=== PATIENT | female | born 1990 | race Caucasian/White ===

== ENCOUNTER → 2021-01-31 16:06 | Outpatient (CLI) | payer OTHER, SELFPAY ==
[2021-01-31 16:24] LABS: Specimen Label NATERA KIT
[2021-01-31 17:06] LABS: Add Manual Diff / Slide Review NO; Basophils Absolute Auto 100 /uL (0-100); Basophils Percent Auto 0.6 % (0-2); Eosinophils Absolute Auto 200 /uL (0-450); Eosinophils Percent Auto 1.8 % (2-4); Hematocrit 36.4 % (36-46); Hemoglobin 12.2 g/dL (12.0-16.0); Lymphocytes Absolute Auto 2300 /uL (1100-4500); Lymphocytes Percent Auto 21.5 % (25-40); Mean Corpuscular HGB Conc 33.5 % (30-36); Mean Corpuscular Hemoglobin 29.5 PG (26-34); Mean Corpuscular Volume 88.1 fL (80-100); Monocytes Absolute Auto 700 /uL (0-900); Monocytes Percent Auto 6.6 % (3-14); Neutrophils Absolute Auto 7400 /uL (1500-7000); Neutrophils Percent Auto 69.5 % (50-75); Platelet Count 268 X10^3/uL (150-400); Red Blood Cell Count 4.13 X10^6/uL (4.0-5.2); Red Cell Distribution Width 12.6 % (11.6-14.8); White Blood Cell Count 10.7 X10^3/uL (4.5-11.0)
[2021-01-31 17:55] LABS: Hepatitis B Surface Antigen NEGATIVE s/c (NEGATIVE); Rubella Antibody IgG 7.7 IU/mL (>15)
[2021-01-31 18:08] LABS: HIV 1 & 2 Ab/Ag 4th Gen Combo NEGATIVE (NEGATIVE); Hep C Virus Ab w/Reflex Quant NEGATIVE s/c (NEGATIVE)
[2021-01-31 18:28] LABS: Appearance Urine UA CLEAR; Bilirubin Urine UA NEGATIVE (NEGATIVE); Color Urine UA YELLOW; Glucose Urine UA NEGATIVE (Negative); Ketones Urine UA NEGATIVE (NEGATIVE); Leukocyte Esterase Urine UA NEGATIVE (NEGATIVE); Nitrite Urine UA NEGATIVE (Negative); Occult Blood Urine UA NEGATIVE (Negative); Protein Urine UA NEGATIVE (Negative); Specific Gravity Urine UA 1.015 (1.000-1.035); Urobilinogen Urine UA 0.2 E.U./dL (0.2)
[2021-01-31 18:32] LABS: Urine N gonorrhoeae NOT DETECTED
[2021-01-31 18:38] LABS: Urine Chlamydia NOT DETECTED
[2021-02-01 06:54] LABS: RPR Screen Non Reactive (Non Reactive); Varicella IgG Antibody 684 index (Immune >165)
== END ==
PROVIDERS: PCP Specialist; Referring Provider Obstetrics & Gynecology; Visit Provider Obstetrics & Gynecology
DX: Z34.81 Encounter for supervision of other normal pregnancy, first trimester (principal); Z3A.09 9 weeks gestation of pregnancy
CPT/HCPCS: 36415; 80055; 81003; 86787; 86803; 86850; 86900; 86901; 87086; 87389; 87491; 87591

== ENCOUNTER → 2021-04-07 15:58 | Outpatient (CLI) | payer OTHER, SELFPAY ==
--- NOTE | 2021-04-07 15:58 | DI.US.S_ITS ---
PROCEDURE: US OB >= 14 WEEKS FETUS INDICATIONS: ANATOMY SCAN OUTSIDE/PRIOR DATING DATA: Last menstrual period (LMP): 11/24/2020. LMP-based estimated date of delivery (PATY): 08/31/2021. First dating scan (date and location): 01/31/2021. Estimated date of delivery (PATY) from first dating scan: 09/02/2021. The calculations are made using the ultrasound PATY of 09/02/2021. TECHNIQUE: Real-time scanning was performed of the fetus, with image documentation and biometric measurements. Endovaginal scanning: Not performed. COMPARISON: [facility], US, OB <= 14 WEEKS FETUS, 01/31/2021, 15:48. FINDINGS: General: A single living intrauterine gestation is present. Presentation: Vertex. Placenta: Placental position is posterior, without previa. Amniotic fluid index: 12.4 cm, normal range is 5-24 cm. Single deepest vertical pocket is 3.6 cm. heart rate: 144 beats per minute. Maternal cervical canal: 3.9 cm long. Normal lower limit is 2.5 cm. biometrics: Biparietal diameter: 4.3 cm, 19 weeks 0 days Head circumference: 16 cm, 18 weeks 6 days Abdominal circumference: 13.4 cm, 18 weeks 6 days Femur length: 3.2 cm, 20 weeks 0 days Clinically estimated gestational age: 18 weeks 6 days Composite gestational age from present scan: 19 weeks 1 day Estimated weight and percentile: 286 g, 73rd percentile Anatomic survey: Neuro: Ventricles are non-dilated at less than 10 mm. Cisterna magna is normal at 3-11 mm. Cerebellum is normal in size and morphology. Nuchal skin fold: Normal at less than 6 mm between 14-21 weeks gestational age. Face: Profile is unremarkable. Nose is not well seen. Lips are less well seen. Spine: No evidence for spina bifida. Heart: 4-chambered heart is present, with normal ventricular outflow tracts. Diaphragm: Diaphragm is intact. Stomach: Left-sided stomach is present. Kidneys: Kidneys are not well seen. Cord: 3-vessel cord. Cord insertion is approximately 2 cm from the placental edge. Bladder: Normal in size. Extremities: All 4 extremities identified. IMPRESSION: 1. [place]ins living intrauterine at 19 weeks 1 day based on today's ultrasound. This is concordant with the prior ultrasound. There is expected interval growth. Fetus is in the 73rd percentile for weight. 2. Normal amniotic fluid. Question marginal cord insertion. 3. nose and lips and kidneys are not well seen. Otherwise normal anatomic survey. Recommend follow-up OB ultrasound. We strive to produce accurate, complete, and clear reports of imaging services. To assist us in improving patient care, this report was composed using standard report templates and voice recognition software. Therefore, it may contain abnormal punctuation, insertions and/or omissions. Occasional wrong-word or sound-alike substitutions may occur. Though we review the report and make efforts to correct it, we do recommend that the report be read carefully in proper context to recognize any text inaccuracies. Dictated by: Johnny Engel M.D. on 04/08/2021 at 8:02 Approved by: Johnny Engel M.D. on 04/08/2021 at 8:10
== END ==
PROVIDERS: PCP Specialist; Referring Provider Obstetrics & Gynecology; Visit Provider Obstetrics & Gynecology
DX: Z34.82 Encounter for supervision of other normal pregnancy, second trimester (principal); Z3A.19 19 weeks gestation of pregnancy
CPT/HCPCS: 76811

== ENCOUNTER → 2021-08-03 18:57 | Outpatient (CLI) | payer OTHER, SELFPAY ==
[2021-08-05 07:49] LABS: Strep Grp B PCR NEG for Grp B Strep
== END ==
PROVIDERS: PCP Specialist; Visit Provider Obstetrics & Gynecology
DX: Z36.85 Encounter for antenatal screening for Streptococcus B (principal); Z3A.36 36 weeks gestation of pregnancy
CPT/HCPCS: 87653

== ENCOUNTER 2021-09-04 17:53 | Inpatient (IN) | payer OTHER, SELFPAY ==
[2021-09-04 18:49] LABS: Add Manual Diff / Slide Review NO; Basophils Absolute Auto 100 /uL (0-100); Basophils Percent Auto 0.6 % (0-2); Eosinophils Absolute Auto 200 /uL (0-450); Eosinophils Percent Auto 1.6 % (2-4); Hematocrit 32.4 % (36-46); Hemoglobin 11.2 g/dL (12.0-16.0); Lymphocytes Absolute Auto 2000 /uL (1100-4500); Lymphocytes Percent Auto 20.6 % (25-40); Mean Corpuscular HGB Conc 34.6 % (30-36); Mean Corpuscular Hemoglobin 30.1 PG (26-34); Mean Corpuscular Volume 87.2 fL (80-100); Monocytes Absolute Auto 800 /uL (0-900); Monocytes Percent Auto 8.8 % (3-14); Neutrophils Absolute Auto 6600 /uL (1500-7000); Neutrophils Percent Auto 68.4 % (50-75); Platelet Count 154 X10^3/uL (150-400); Red Blood Cell Count 3.72 X10^6/uL (4.0-5.2); White Blood Cell Count 9.6 X10^3/uL (4.5-11.0)
[2021-09-04 19:03] LABS: COVID19 -Nasal RAPID Negative (Negative)
[2021-09-04 19:08] VITALS: BP 119/74
[2021-09-04] MEDS: DINOPROSTONE VAG (CERVIDIL) 10 MG VAG (21:03)
[2021-09-05] MEDS: LACTATED RINGERS 1,000 ML 100 ML IV ×3 (10:05→17:59)
[2021-09-05] MEDS: OXYTOCIN PREMIX 30 UNIT/500 ML PLAST..BAG IV (10:06)
--- NOTE | 2021-09-05 12:32 | P.HPOB_ITS ---
OB HPI Date/Time Date of admission: 09/04/21 Date Patient Seen: 09/05/21 Time Patient Seen: 07:25 History of Present Condition Chief complaint: Induction PATY Calculator Estimated Delivery Date Method Current WG Current Estimate 08/31/21 LMP (Uncertain) 40w 5d Other Estimates 09/02/21 Ultrasound #1 40w 3d Estimated Gestational Age (weeks): 40+5 : 2 Para: 0 care: good care, initiated at week # (9), number of visits (11) and pounds weight gain (56) Dating criteria OB: LMP confirmed by 1st trimester US Ultrasounds: normal 1st trimester US and normal mid trimester US Obstetrical complications: none Medical complications OB: none Indications Indication for induction OB: post dates Preadmission Labs Last OB Lab Results: Blood Type AB Negative 09/04/21 18:20 09/04/21 Antibody Screen Negative 09/04/21 18:20 09/04/21 Hematocrit 32.4 % (36-46) L 09/04/21 18:20 09/04/21 Hemoglobin 11.2 g/dL (12.0-16.0) L 09/04/21 18:20 09/04/21 Hepatitis B Surface Antigen Negative s/c (NEGATIVE) 01/31/21 16:22 01/31/21 Hepatitis C Antibody Negative s/c (NEGATIVE) 01/31/21 16:22 01/31/21 Rubella Antibody 7.7 IU/mL (>15) L 01/31/21 16:22 01/31/21 Varicella-Zoster IgG Antibody 684 index (Immune >165) 01/31/21 16:22 1 Group B Streptococcus (PCR) Neg for grp b strep 08/03/21 18:57 08/03/21 Glucose Tolerance Testing: Fasting (92), 1 hr (164), 2 hr (126) and 3 hr (108) -: Chlamydia screen: negative, Gonorrhea screen: negative and Urine: negative Genetic Screens: Cell-free DNA: Normal (nl male) and Alpha-fetoprotein: Normal External Labs -: Urine: negative Prior (ies) Past Pregnancies Del. Date GA/Weeks Labor Lgth Wt Sex Route Outcome Anesthesia Place Delv Breastfeed Preg Comp Name 02/04/11 5-6 elective [place] elective Delivery Date: 10/15/11 Last Updated by: Macarena Love, RWinsome *Pill taken no negative fall out. Evaluation Evaluation Baseline heart rate: 130 Variability: Moderate (11-25) monitor accelerations: Present Monitor Decelerations: Absent Contraction Frequency (minutes): 5 Uterine Contraction Intensity: Moderate Status: Category l Dilation (cm): 2 Effacement (%): 95 station: -1 Position of cervix: mid Consistency: soft [facility] Medical History (Updated 01/31/21 @ 09:48 by Shannon Kathleen) Abnormal Pap smear of cervix (~2015) Ankle pain (~2006) Chicken pox Eczema of both upper extremities (~1996) HPV in female (~2015) Hx of migraines (~2011) Migraines (~2017) Therapeutic in first trimester (~2010) Wears glasses Surgical History (Updated 01/25/21 @ 15:46 by Macarena Love, BORIS) H/O colposcopy with cervical biopsy (~2015) Family History (Updated 01/31/21 @ 09:50 by Shannon Kathleen) Father Accident Mother Crohn's disease Hypertension Arthritis Grandfather Obesity Diabetes mellitus Alcoholic Grandmother History of ETOH abuse Alcoholism in recovery Grandfather No problems noted. Grandmother COPD (chronic obstructive pulmonary disease) Lung disease Brother Healthy adult Family/Other Diabetes mellitus Family/Other CVA (cerebral vascular accident) Mental health problem Social History marital status: number of children: 0 household members: spouse lives independently: Yes caregiver/support person: No pets and animals: Yes (X 1 dog and X 1 cat : aware!) education level: college (BA in Teaching at [employer] ) occupational status: employed (Teacher) current occupational exposures/hazards: Yes special paul needs: No Smoking Status: Never smoker second hand exposure: No alcohol intake: former (pre- : 1-3/week social use) substance use type: does not use and marijuana (H/O smoked marijuana stopped X 2 months prior to ) Meds Home Medications and Allergies Home Medications Medication Instructions Recorded Confirmed Type Saccharomyces boulardii 10 billion cell PO 01/25/21 08/29/21 History cell capsule (Resistance Formula Probiotic) prenat.vits,allie,tnk-enjf-jqmen 1 tab PO DAILY 01/25/21 08/29/21 History Allergies Allergy/AdvReac Type Severity Reaction Status Date / Time house dust Allergy Intermediate Sneezing, Verified 08/29/21 16:36 itchy eyes OB Exam Narrative Exam Narrative: Generally: Patient getting a little uncomfortable with contractions Lungs: Clear to auscultation bilaterally Cardiovascular: Regular rate and rhythm Fundal height: 41 cm Estimated weight: 8 lb Extremities: Negative Homans, trace edema Objective Labs Result Diagrams: 09/04/21 18:20 Labs: Laboratory Results - last 24 hr 09/04/21 09/04/21 09/04/21 18:20 18:20 18:20 WBC 9.6 RBC 3.72 L Hgb 11.2 L Hct 32.4 L MCV 87.2 MCH 30.1 MCHC 34.6 RDW 14.0 Plt Count 154 Neut % (Auto) 68.4 Lymph % (Auto) 20.6 L Ramsey % (Auto) 8.8 Eos % (Auto) 1.6 L Baso % (Auto) 0.6 Neut # (Auto) 6600 Lymph # (Auto) 2000 Ramsey # (Auto) 800 Eos # (Auto) 200 Baso # (Auto) 100 SARS-CoV-2 (PCR) Negative Blood Type AB Negative Antibody Screen Negative Assessment and Plan Assessment and Plan Assessment and Plan narrative: Assessment: 30-year-old 2 para 0 at 40-,5/7 weeks gestation status post Cervidil last evening Favorable cervix Plan: Pitocin per protocol 2 Epidural as necessary Artificial rupture of membranes when able Time Spent with Patient Total time spent with greater than 50% in coordination of care (as documented) at patient's floor/unit and/or counseling patient:: 15-24 minutes
[2021-09-05] MEDS: FENT 2MCG/ML BUPIV 0.125% EPI 200 MCG/100 ML PLAST..BAG 6 MCG EPIDURAL ×2 (13:25→20:33)
--- NOTE | 2021-09-05 14:13 | PM.OBPNLAB ---
Date/Time Date Patient Seen: 09/05/21 Time Patient Seen: 13:55 Pain Control Pain control: epidural Pelvic Exam Dilation (cm): 2 Effacement (%): 95 station: -1 Amniotic membrane status: Bulging Contractions Contractions on admission: irregular Monitor mode: External Pitocin rate (mU/min): 4 Contraction frequency (min): 3 Contraction duration (min): 1 Contraction pattern: Regular Contraction intensity: Strong/Firm Status status: Category l Heart Rate Baseline: 140 Monitor Accelerations: Present Monitor Decelerations: Absent Monitor Variability: Moderate Assessment and Plan Assessment: induction ongoing Plan: continuous present management
--- NOTE | 2021-09-05 15:52 | PM.AN.REGBLK ---
Regional Block Pre-procedure Procedure: Continuous Lumbar Epidural for L&D Attending OB provider: Kathrine Ryan PMH/ROS narrative: term labor, no complications. ASA Class: II Labs: Hct 32.4 % (36-46) L 09/04/21 18:20 Plt Count 154 X10^3/uL (150-400) 09/04/21 18:20 Medications: Current Medications Generic Name Dose Route Start Last Admin Trade Name Freq PRN Reason Stop Dose Admin Calcium Carbonate 1,000 mg 09/04/21 18:01 Calcium Carbonate 500 Mg Tab PO Q2HR PRN Dyspepsia Carboprost Tromethamine 250 mcg 09/04/21 18:01 Carboprost 250 Mcg/Ml Ampul IM Q90M PRN Bleeding Diphenhydramine HCl 25 mg 09/05/21 13:00 Diphenhydramine 50 Mg/Ml Vial IV Q10M PRN Pruritis Ephedrine Sulfate 5 mg 09/05/21 13:00 Ephedrine 50 Mg/Ml Vial IV Q5M PRN Blood pressure decrease more than 20% of baseline. Fentanyl 50 mcg 09/04/21 18:01 Fentanyl 100 Mcg/2 Ml Inj IV Q1H PRN Pain, Moderate (4-6) Lactated Ringer's 1,000 mls @ 100 mls/hr 09/04/21 18:15 09/05/21 13:40 Lactated Ringers IV 100 mls/hr CONT MEME Administration Oxytocin/Lactated Ringer's 30 unit in 500 mls @ 200 mls/hr 09/04/21 18:01 Oxytocin Premix IV CONT PRN Bleeding Protocol Oxytocin/Lactated Ringer's 30 unit in 500 mls @ 3 mls/hr 09/04/21 18:15 09/05/21 10:06 Oxytocin Premix IV 3 milliunit/min TITRATE MEME 3 mls/hr Administration Protocol 3 MILLIUNIT/MIN Tranexamic Acid 1,000 mg/ 100 mls @ 200 mls/hr 09/04/21 18:01 Sodium Chloride IV NOW PRN Bleeding FENT 2MCG/ML BUPIV 0.125% EPI 200 mcg in 100 mls @ 6 mls/hr 09/05/21 13:00 09/05/21 13:25 Fentanyl/Bupiv/Ns 2mcg/Ml - 0.125% EPIDURAL 6 mls/hr CONT MEME Administration Methylergonovine Maleate 0.2 mg 09/04/21 18:01 Methylergonovine 0.2 Mg/Ml Vial IM NOW PRN Bleeding Methylergonovine Maleate 0.2 mg 09/04/21 18:01 Methylergonovine 0.2 Mg Tablet PO Q6HR PRN Heavy Bleeding Metoclopramide HCl 10 mg 09/04/21 18:01 Metoclopramide 10 Mg/2 Ml Inj IV NOW PRN Nausea And Vomiting Misoprostol 1,000 mcg 09/04/21 18:01 Misoprostol 200 Mcg Tablet AL NOW PRN Bleeding Misoprostol 400 mcg 09/04/21 18:01 Misoprostol 200 Mcg Tablet SL NOW PRN Bleeding Misoprostol 800 mcg 09/04/21 18:01 Misoprostol 200 Mcg Tablet AL NOW PRN Bleeding Nalbuphine HCl 2.5 mg 09/05/21 13:00 Nalbuphine 20 Mg/Ml Ampul IV Q10M PRN Pruritis Naloxone HCl 0.2 mg 09/04/21 18:01 Naloxone 0.4 Mg/Ml Vial IV Q2MIN PRN Opiate Reversal Ondansetron HCl 4 mg 09/04/21 18:01 Ondansetron 4 Mg/2 Ml Inj IV Q4HR PRN Nausea And Vomiting Oxytocin 10 unit 09/04/21 18:01 Oxytocin 10 Unit/Ml Vial IM NOW PRN Bleeding Allergies: Allergies Allergy/AdvReac Type Severity Reaction Status Date / Time house dust Allergy Intermediate Sneezing, Verified 08/29/21 16:36 itchy eyes Procedure Insertion date: 09/05/21 Insertion time: 13:10 Prep/Local: betadine x3 and 1% lidocaine Interspace: L3-4 Patient position: sitting Needle: 18 gauge Angel Alerts (CSE: 27g Pencan through [place], clear CSF, 2.5mg MPF bupivacaine) Loss of resistance with: saline JUAN at (cm): 5 Catheter placed at SKIN (cm): 10 Catheter in SPACE (cm): 5 Insertion: No CSF, No Blood, No Paresthesia with insertion, No Paresthesia with injection and No Test dose reaction Initial Medications TEST DOSE time: 13:14 TEST DOSE: 1.5% lidocaine with epinephrine 1:200k (mL): 3 BOLUS DOSE time: 12:23 BOLUS DOSE (mL): 4 BOLUS DOSE med: other (infusate) Infusion INFUSION: 0.125% bupivacaine and with fentanyl 2 mcg/mL Initial rate (mL/hr): 6 Subsequent interventions: 2330 5mL 2-chloroprocaine, rate to 8 0150 5mL 2-chloroprocaine, 50mcg fentanyl, pushing 0600 50mcg fentanyl, rate to 4mL/h, preparing for CS. Still L>R coverage, will pull and place SAB for CS Post-procedure Anesthesia time START: 13:04 Anesthesia time END: 06:58 Post-procedure Anesthesia Assessment: Yes CV function: HR/BP stable, Yes Resp function: RR/sat/airway adequate, Yes Mental status appropriate and No Anesthesia complications
--- NOTE | 2021-09-05 21:04 | PM.OBPNLAB ---
Date/Time Date Patient Seen: 09/05/21 Time Patient Seen: 15:55 Pain Control Pain control: epidural Comments: Called due to 2 decels Pelvic Exam Effacement (%): 95 station: -1 Amniotic membrane status: Bulging Contractions Contractions on admission: irregular Monitor mode: External Pitocin rate (mU/min): 4 Contraction frequency (min): 3 Contraction pattern: Regular Contraction intensity: Moderate Status status: Category ll Heart Rate Baseline: 130 Monitor Accelerations: Present Monitor Decelerations: Prolonged Monitor Variability: Minimal Assessment and Plan Assessment: induction ongoing Comments: Assessment: Two decelerations with tachysystole Otherwise reassuring FHR tracing Plan: Decrease Pitocin ti 2 mIU/min
--- NOTE | 2021-09-05 21:07 | PM.OBPNLAB ---
Date/Time Date Patient Seen: 09/05/21 Time Patient Seen: 21:07 Pain Control Pain control: epidural (More dense on left than right) Pelvic Exam Dilation (cm): 9 Effacement (%): 100 station: 0 Amniotic membrane status: Ruptured Contractions Contractions on admission: irregular Monitor mode: External Pitocin rate (mU/min): 3 Contraction frequency (min): 3 Contraction duration (min): 1 Contraction pattern: Regular Contraction intensity: Strong/Firm Status status: Category l Heart Rate Baseline: 125 Monitor Accelerations: Present Monitor Decelerations: Absent Monitor Variability: Moderate Assessment and Plan Assessment: active labor and induction ongoing Plan: continuous present management Comments: Expectant management to
--- NOTE | 2021-09-05 22:26 | PM.OBPNLAB ---
Date/Time Date Patient Seen: 09/05/21 Time Patient Seen: 22:26 Pain Control Pain control: tolerating well and epidural Pelvic Exam Dilation (cm): 9 Effacement (%): 95 station: 0 Amniotic membrane status: Ruptured Contractions Contractions on admission: irregular Monitor mode: External Pitocin rate (mU/min): 3 Contraction frequency (min): 3 Contraction duration (min): 1 Contraction pattern: Regular Contraction intensity: Strong/Firm Status status: Category l Heart Rate Baseline: 125 Monitor Accelerations: Present Monitor Variability: Moderate Assessment and Plan Assessment: active labor and induction ongoing Comments: Exaggerated Cruz
--- NOTE | 2021-09-06 03:05 | PM.OBPNLAB ---
Date/Time Date Patient Seen: 09/06/21 Time Patient Seen: 03:05 Pain Control Pain control: epidural (Some pain on right side, just received bolus) Pelvic Exam Dilation (cm): 9 Effacement (%): 100 station: 0 Amniotic membrane status: Ruptured Contractions Monitor mode: External Pitocin rate (mU/min): 4 Contraction frequency (min): 3 Contraction duration (min): 1 Contraction pattern: Regular Contraction intensity: Strong/Firm Status status: Category l Monitor Accelerations: Present Monitor Decelerations: Variable Monitor Variability: Moderate Assessment and Plan Assessment: active labor and induction ongoing Comments: Assessment: Stage I stall of labor Plan: IUPC to assess adequacy of contractions Right side-lying
[2021-09-06] MEDS: LACTATED RINGERS 1,000 ML 100 ML IV ×3 (03:28→12:49)
[2021-09-06] MEDS: FENT 2MCG/ML BUPIV 0.125% EPI 200 MCG/100 ML PLAST..BAG 6 MCG EPIDURAL (04:29)
--- NOTE | 2021-09-06 06:08 | PM.OBPNLAB ---
Date/Time Date Patient Seen: 09/06/21 Time Patient Seen: 06:09 Pain Control Pain control: epidural (Window in RLQ) Pelvic Exam Dilation (cm): 10 Effacement (%): 100 station: 0 Amniotic membrane status: Ruptured Contractions Monitor mode: External Pitocin rate (mU/min): 10 Contraction frequency (min): 3 Contraction duration (min): 1 Contraction pattern: Regular Contraction intensity: Strong/Firm Intrauterine tone measurement: 180 Status status: Category ll Heart Rate Baseline: 130 Monitor Accelerations: Present Monitor Decelerations: Late Monitor Variability: Minimal Assessment and Plan Assessment: active labor Comments: Primary C section The risks, benefits, and alternatives to the procedure were explained to the patient. The risks including bleeding, infection, injury to the bowel, bladder, or ureters. She understands these risks and agrees to proceed. A full par Q was held and consent form was signed.
--- NOTE | 2021-09-06 06:11 | PM.PREOP ---
Pre-operative Note COVID-19 COVID-19 status: Negative Result date/Date tested (Pos, Neg/Pending): 09/04/21 Criteria for continued procedure: Delay expected to result in less-positive ultimate med/surg outcome and Non-surgical alternatives not available or appropriate per current SOC Interval Note History & Physical reviewed/Exam performed by Physician: Yes Changes to H&P: No H&P completed within 30 days and has changed as indicated here:: 09/05/21
[2021-09-06] MEDS: ACETAMINOPHEN IV 1,000 MG/100 ML VIAL 400 MG IV (07:15)
[2021-09-06] MEDS: CEFAZOLIN 2 GM/20 ML SYRINGE IV (07:19)
--- NOTE | 2021-09-06 07:28 | SUR.OPER ---
Supine on Padded OR bed, head on pillow, safety belt at thigh, arms secured on padded arm boards at <90 degrees abduction. Bump under right buttock. Legs uncrossed with pillow under knees, gel pad to heels, tape over blanket to lower legs.
--- NOTE | 2021-09-06 07:49 | SUR.OPER ---
viable baby boy born at 0735, placenta delivered at 0739, weight 9.0lb, 12/30. Cord blood and placenta given to OB RN
[2021-09-06 08:13] VITALS: BP 112/54; PULSE 119; RESP 16; TEMP 37.1; O2SAT 97
--- NOTE | 2021-09-06 08:13 | PM.OBCS.1 ---
Operative Date/Time/Diagnoses Date of procedure: 09/06/21 Time of procedure: 08:13 Pre-op diagnosis: 40+5 weeks gestation Stage 2 arrest of labor Post-op diagnosis: same Procedure & Clinicians Procedure: Primary C section Same procedure as scheduled: Yes Indications: Stage 2 arrest of labor 40+5 weeks gestation Surgeon: Kathrine Ryan Click Yes if Unassisted: No Instrument Operator: Brittney Black Reason for Instrument Operator: Instrument Operator was necessary to retract upon entry into the abdomen and uterus. She assisted with delivery of the . She is cyst did in closure with clipping of suture and retraction. She closed the contralateral fascia. Anesthesia Type: Spinal (with Duramorph) Operative Notes Findings: Live male Normal uterus, tubes and ovaries Closure Type: primary Specimen(s): cord blood and placenta Intraoperative meds administered: Duramorph, Ketorolac and Pitocin Applied: Catheter (To continuous drainage) Estimated Blood Loss (mL): 650 Blood products transfused: none Procedure in detail: The patient was taken to the operating room where she was placed in the seated position. Spinal anesthesia with Duramorph was administered. She was then placed in the dorsal supine position with a leftward tilt. Using a sterile gloved hand, the baby's head was lifted out of the vagina. She was prepped and draped in the usual sterile fashion. A timeout was performed. After spinal analgesia was found to be adequate, a Pfannenstiel skin incision was made 2 fingerbreadths above the pubic symphysis and carried through to the underlying layer fascia. The fascia was nicked in the midline, and the incision extended bilaterally with the Shukla scissors. The superior aspect of the fascial incision was grasped with a [place] clamps, elevated, and the underlying rectus muscles dissected off sharply and bluntly. Attention was then turned to the inferior aspect of this incision which in a similar fashion was grasped with a [place] clamps, elevated, and the underlying rectus muscles dissected off sharply and bluntly. The rectus muscles were in the midline. The peritoneum was identified, grasped between 2 hemostats, and entered sharply with the Metzenbaum scissors. This incision was extended superiorly and inferiorly with good visualization of the bladder. The bladder blade was inserted. The vesicouterine peritoneum was identified, grasped with the pickup, and entered sharply with the Metzenbaum scissors. This incision was extended bilaterally, and the bladder flap was created digitally. The bladder blade was reinserted. The lower uterine segment was incised in a transverse fashion with the scalpel. Upon entering the amniotic sac there was a small amount of clear amniotic fluid. The nose and mouth were suctioned with bulb suction. The remainder of the body delivered without difficulty. The cord was double clamped and cut. The infant was handed off to waiting RN and RT. The placenta was delivered manually. The uterus was cleared of all clots and debris. The uterine incision was repaired with #1 chromic in a running interlocking fashion, and a second layer the same suture was used for an imbricating layer. Hemostasis was achieved. The tubes and ovaries were examined and were found to be normal. The gutters were cleared of all clots and debris. The bladder flap was reapproximated using 2-0 Vicryl in a running fashion. The parietal peritoneum was closed using 2-0 Vicryl in a running fashion. The fascia was reapproximated using 0 Vicryl in a running fashion. Subcutaneous layer was copiously irrigated with warm normal saline. 5 simple interrupted sutures of 3-0 Vicryl were placed to reapproximate the subcutaneous layer. The skin was closed with 4-0 undyed Vicryl in a subcuticular fashion. Steri-Strips were placed. An Aquacel dressing was placed. The uterus was expressed of a small amount of old blood. Sponge, lap, and instrument counts were correct x-2. The patient tolerated the procedure well, and was taken to PACU in stable condition. Complications: none [place] Baby 1: Gender: Male Presentation: vertex Position: Right Occiput Anterior Placental Delivery Description: Expressed Cord Vessel Description: 3 Vessels score (1 min): 9 score (5 min): 9 weight: 9 lb Post-operative Aftercare: routine postop
[2021-09-06 08:22] VITALS: BP 113/53; PULSE 116; RESP 18; O2SAT 97
[2021-09-06 08:23] VITALS: BP 108/63; PULSE 115; RESP 16; O2SAT 97
[2021-09-06 08:28] VITALS: BP 106/56; PULSE 113; RESP 21; TEMP 37.1; O2SAT 97
--- NOTE | 2021-09-06 08:40 | SUR.PHASEI ---
Pt transferred to room 2 in bed by this RN. SBAR report to Yana Bird. Gladys-pad, dressing and fundal assessment done at [facility]. No change.
[2021-09-06] MEDS: OXYTOCIN PREMIX 30 UNIT/500 ML PLAST..BAG 200 UNIT IV (09:03)
[2021-09-06] MEDS: ONDANSETRON 4 MG/2 ML INJ IV (12:49)
[2021-09-06] MEDS: KETOROLAC 30 MG/ML VIAL IV ×2 (14:09→20:03)
[2021-09-06] MEDS: ACETAMINOPHEN 325 MG TABLET 650 MG PO (20:04)
[2021-09-07 00:54] VITALS: BP 111/82; PULSE 92; RESP 16; TEMP 36.6
[2021-09-07] MEDS: KETOROLAC 30 MG/ML VIAL IV (02:09)
[2021-09-07] MEDS: ACETAMINOPHEN 325 MG TABLET 650 MG PO ×3 (04:10→18:17)
[2021-09-07 05:42] LABS: Hematocrit 28.2 % (36-46); Hemoglobin 9.5 g/dL (12.0-16.0)
[2021-09-07] MEDS: PRENATAL VIT,CALC/IRON/FOLIC 1 TABLET 1 TAB PO (08:09)
[2021-09-07] MEDS: IBUPROFEN 600 MG TABLET PO ×3 (08:10→20:27)
[2021-09-07] MEDS: DOCUSATE 100 MG CAPSULE 200 MG PO (08:10)
[2021-09-07] MEDS: RHO(D) IMMUNE GLOBULIN 1,500 UNIT SYRINGE 1500 UNIT IM (09:10)
--- NOTE | 2021-09-07 22:39 | PM.OBPN.1 ---
Subjective - OB Subjective Patient comments: no complaints, pain well controlled, tolerating diet and flatus present baby status: doing well and nursing well [place] feeding status: exclusively breast feeding Date Patient Seen: 09/07/21 Time Patient Seen: 17:35 Interval history: Patient is postop day # 1 status post primary low-transverse section for a stage II arrest of labor. Exam Vital Signs (past 8 hours): Oxygen Delivery Method Room Air Narrative Exam Narrative: Generally: Patient lying in bed, holding infant, no acute distress Lungs: Clear to auscultation bilaterally Cardiovascular: Regular rate and rhythm Fundus: Firm at U -2 Incision: Clean dry and intact with Aquacel dressing Extremities: Trace edema, negative Homans Objective Labs Result Diagrams: 09/07/21 05:13 Labs: Laboratory Results - last 24 hr 09/07/21 09/07/21 05:13 05:13 Hgb 9.5 L Hct 28.2 L Maternal Bleed Negative Assessment & Plan Plan day: 1 plan OB: routine postop care Comments: Anticipate discharge September 08, 2021 Time Spent With Patient Time: Total time spent is greater than 50% in coordination of care (as documented) at patient's floor/unit and/or counseling patient: Time with patient: 15-24 minutes
[2021-09-08] MEDS: ACETAMINOPHEN 325 MG TABLET 650 MG PO ×2 (00:25→06:43)
[2021-09-08] MEDS: IBUPROFEN 600 MG TABLET PO ×2 (04:32→10:59)
[2021-09-08] MEDS: PRENATAL VIT,CALC/IRON/FOLIC 1 TABLET 1 TAB PO (09:31)
[2021-09-08] MEDS: DOCUSATE 100 MG CAPSULE 200 MG PO (09:31)
[2021-09-08] MEDS: OXYCODONE IR 5 MG TABLET PO (11:00)
[2021-09-08] MEDS: MEASLES,MUMPS,RUBELLA VACC/PF 0.5 ML VIAL SUBCUT (11:00)
--- NOTE | 2021-09-20 07:47 | P.DS_ITS ---
Discharge Providers Provider Date of admission: 09/04/21 17:53 Discharge Date: 09/08/21 Primary care physician: Raine Mike MD Consults: 09/06/21 08:32 Consult to Marketing Communications Coordinator Routine Comment: Discharge provider: Kathrine Ryan MD Summary Hospital Course Date Patient Seen: 09/08/21 Time Patient Seen: 07:30 Diagnoses: 40-5/7 weeks gestation Cervical ripening with Cervidil Artificial rupture of membranes Pitocin induction of labor Epidural analgesia Primary low-transverse section for stage II arrest of labor Hospital Course: Patient is a 30-year-old 2 para 1 who presented on September 05, 2021 for Cervidil cervical ripening at 40-,5/7 weeks gestation. She received 1 Cervidil overnight. On the morning of September 06, 2021 she was started on Pitocin. Artificial rupture membranes was performed. She received an epidural for pain management. She progressed to complete dilation and pushed for 3+ hours without any further descent past 0 station. She had adequate contractions by intrauterine pressure catheter. She underwent a primary low-transverse section without complication. She was discharged home on postop day # 2. Peripartum Data Delivery Method: Section Laceration Description: None Episiotomy description: None Procedures: Cervidil cervical ripening Pitocin induction of labor Artificial rupture of membranes Epidural analgesia Intrauterine pressure catheter placement Primary low-transverse section complications: none [place] 1: Gender: Male Status at Discharge Cognitive/behavioral status at discharge: oriented Functional status at discharge: independent ambulation Overall status at discharge: patient is progressing back to baseline Time Spent with Patient Time attestation: Total time spent providing and/or coordinating discharge services: Time spent: Less than 30 minutes Objective Labs Result Diagrams: 09/07/21 05:13 Exam Vital Signs (past 8 hours): Oxygen Delivery Method Room Air Narrative Exam Narrative: Generally: Patient is sitting up in bed, holding , no acute distress Lungs: Clear to auscultation bilaterally Cardiovascular: Regular rate and rhythm Fundus: Firm at U -2 Abdomen: Soft, appropriately tender, good bowel sounds Extremities: 1+ edema, negative Homans Discharge Plan Discharge Plan Patient Disposition: Home Provider Discharge Comment: Call with fever, chills, redness or drainage around the incision, or bleeding vaginally more than a pad in an hour Ibuprofen 600 mg every 6 hours as needed Tylenol 650 mg every 6 hours as needed Oxycodone every 4 hours as needed Discharge orders & Medications Prescriptions: New oxycodone 5 mg tablet 5 mg PO Q4H PRN (Reason: pain) Qty: 20 0RF Continued prenat.vits,allie,[id number] Tablet 1 tab PO DAILY 0RF Resistance Formula Probiotic 10 billion cell capsule 1 cell PO DAILY 0RF Follow up/Referrals: Kathrine Ryan MD [Physician] - (2 week telehealth appointment with on t 4:30pm and 6 week appointment with on Sunday, September at 2:15pm in the office.) Diet/Activity/Treatments Diet: Regular Activity: No heavy lifting Skin/Wound/Dressing Care Report to your healthcare provider any signs of infection, such as:: chills, fever, increased pain, unusual drainage and unusual redness Dressing: We will remove the Aquacel dressing next Sunday when the baby is brought in for pediatric visit After Aquacel dressing removed, leave the Steri-Strips open to air. After a shower use a inspector hairspring truing on a cool setting to dry the Steri-Strips Visit Report/Discharge Packet Instructions: DI for , DI for Prescription Opioid Use Discharge Data Primary Care Provider: Raine Mike
== END 2021-09-08 11:30 | disposition home or self-care (01) | DRG 788 ==
PROVIDERS: Admitting Provider Obstetrics & Gynecology; PCP Specialist; Referring Provider Obstetrics & Gynecology; Visit Provider Obstetrics & Gynecology
PROC: 10D00Z1 Extraction of Products of Conception, Low, Open Approach (ICD-10-PCS; CPT 59514; principal; 2021-09-06 08:00)
DX: O48.0 Post-term pregnancy (principal); Z3A.40 40 weeks gestation of pregnancy; Z37.0 Single live birth; O62.1 Secondary uterine inertia; O76 Abnormality in fetal heart rate and rhythm complicating labor and delivery; Z20.822 Contact with and (suspected) exposure to COVID-19
CPT/HCPCS: 01967; 01968; 36415; 59050; 59200; 59510; 59514; 76815; 85014; 85018; 85025; 85461; 86850; 86900; 86901; 87635; C9803; G0379; J0131; J0690; J1885; J2274; J2405; J2590; J2704; J2790